=== PATIENT | male | born 1995 | race Caucasian/White ===

== ENCOUNTER → 2017-01-29 | Outpatient (CLI) | payer OTHER ==
[~2017-01-29] MED LIST: ADVIL200 MG PO; DDAVP0.2 MG PO; NORCO 5-325 TA1 EACH PO; TRIPLE ANTIB28.35 GM TOP; TYLENOL EXTRA500 MG PO; ZYRTEC10 MG PO
== END | disposition disaster alternative care site (69) ==
LOC: GAIR 23:36
DX: S49.90XA Unspecified injury of shoulder and upper arm, unspecified arm, initial encounter (principal); R41.82 Altered mental status, unspecified; V49.60XA Unspecified car occupant injured in collision with unspecified motor vehicles in traffic accident, initial encounter
CPT/HCPCS: A0422; A0431; A0436; J2250; J3010

== ENCOUNTER 2017-01-30 00:02 | Inpatient (IN) | payer OTHER ==
[~2017-01-30] VITALS: Ht 193 cm; Wt 130.5 kg
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
--- NOTE | ~2017-01-30 | OR ---
PATIENT'S NAME: NOAH SMITH [facility] AGE: 21 Y [address] ROOM: [place] [id number] LOCATION: GICU ADMIT DATE: 01/30/2017 OR/Procedure Report DISCHARGE DATE: FAMILY PHYSICIAN: Shakila Henning MD ATTENDING PHYSICIAN: Tae Mendoza SURGEON: Toñito Choi MD DISTRICT COURT JUDGE: ALEX Holley. An retail store assistant was necessary during the entire case. The retail store assistant helped with positioning the limb in space, soft tissue retraction, fracture reduction, as well as fracture fixation, wound closure, and wound VAC application. DATE OF PROCEDURE: 01/31/2017 PREOPERATIVE DIAGNOSES: 1. Open right coracoid fracture. 2. Right shoulder AC joint instability. 3. Large soft tissue wound over the right upper chest and shoulder measuring greater than 30 cm involving skin, subcutaneous tissue, fascia, muscle, and bone. POSTOPERATIVE DIAGNOSES: 1. Open right coracoid fracture. 2. Right shoulder AC joint instability. 3. Large soft tissue wound over the right upper chest and shoulder measuring greater than 30 cm involving skin, subcutaneous tissue, fascia, muscle, and bone. PROCEDURE: 1. Right shoulder large wound irrigation and debridement of skin, subcutaneous tissue, fat, fascia, nonviable muscle, and bone. 2. Open reduction and internal fixation of right coracoid fracture using a 4.5 mm Synthes cannulated screw. 3. AC joint stabilization. 4. Incisional wound VAC application measuring 24 cm in length. ANESTHESIA: General endotracheal anesthesia. DRAINS: Wound VAC x1. COMPLICATIONS: None. SPECIMENS: None. INDICATIONS: Noah Smith is a 21-year-old male. He initially presented to the emergency room approximately 36 hours prior. He was found to have an open right coracoid fracture with significant soft tissue wounds. He also had an PATIENT'S NAME: NOAH SMITH [facility] AGE: 21 Y [address] ROOM: [address] [address] LOCATION: [facility] ADMIT DATE: 01/30/2017 OR/Procedure Report DISCHARGE DATE: FAMILY PHYSICIAN: Shakila Henning MD ATTENDING PHYSICIAN: Tae Mendoza open right fifth distal phalanx fracture. He was taken back to the operating room and underwent irrigation and debridement of the open wound as well as fracture fixation of the right fifth digit. The wound VAC was placed. On further imaging, he did appear to have a diastasis across that AC joint. Ultimately, given that significant soft tissue envelope, I did not want to operate on the coracoid with that large soft tissue injury until I knew that the wound was stable. For that reason, I scheduled him for a subsequent I and D approximately 36 hours after the initial I and D. I talked to the family as well as the patient. Should the wound appeared clean and in fact, I would then plan on performing an open reduction and internal fixation of the coracoid. Should the wound still be contaminated or should there be evidence of nonviable muscle or purulence, I would then repeat the irrigation and debridement at a later time and plan on fixation at a later time. I talked about the risk of bleeding, infection, damage to surrounding structures, as well as the potential need for future surgery. I talked about the risk of nerve damage. We also talked about the risk that he probably had an element of a scapular thoracic dissociation based on that AC joint widening. I talked about the risk of nerve root injury. He did have spinal fractures which were being treated by an outside surgeon and he is in a brace per the . PROCEDURE IN DETAILS: Surgical marking pen was used to correctly identify the right shoulder as the surgical site. Consent was signed and dated. He was taken back to the operating suite, placed supine on the OR table. He underwent general endotracheal induction and intubation. Time-out was called by myself. During the time-out, the patient, the procedure to be performed, the dosing of the preoperative antibiotics and the postoperative plan were reviewed by everyone in the room. He was placed in a beach chair position. All bony prominences were well padded. The right upper extremity was then prepped and draped in a standard sterile fashion. Prior to doing this, the wound VAC was removed. The previously placed sutures were taken out of that right wound. The hand was well-padded and well protected in a stockinette. At this point, I opened up the wound. Some of that anterior deltoid that had previously been irrigated and debrided did not appear that healthiest. There was a small area about 2 cm x 1 cm that did not have great color nor contractility. For that reason, it was debrided and removed. Likewise, there was some fascia overlying this deltoid that required removing it. There were 2 areas of skin, 1 in the apex of the wound at the very top and then the other 1 in the axilla that had to be debrided based on a dusky appearance. I went ahead and removed those edges. The remainder of the wound was very clean. The remainder of the deltoid as well as the pec major muscle had good contractility , good color and good muscle consistency. I clearly irrigated the wound again with 9 L of normal saline via pulse lavage. Bulb irrigation was used medially as I was able to visualize that brachial plexus sitting medially. At that point, I exposed the fracture fragments at the base of the coracoid. There was a small amount of bony ends that I was able to remove. I PATIENT'S NAME: NOAH SMITH [facility] AGE: 21 Y [address] ROOM: [place] [address] LOCATION: [facility] ADMIT DATE: 01/30/2017 OR/Procedure Report DISCHARGE DATE: FAMILY PHYSICIAN: Shakila Henning MD ATTENDING PHYSICIAN: Tae Mendoza was then able to get an anatomic read. I held it in place with a point-to- point reduction clamp and then I shot two 0.035 K-wires across the fracture site to hold it in place. X-ray was then brought into confirm the placement. I then placed a single Synthes 4.5 mm cannulated partially threaded screw across the coracoid. It measured 50 mm in length. I was able to confirm on x- ray the placement of the screw into the base of the coracoid. The fracture did appear to be anatomically reduced and I had good compression with that partially threaded screw. That brought very nice tension across that conjoint tendon. I then thoroughly irrigated the wound again and achieved hemostasis. I went distally. I was able to localize a small amount of pec major tendon their on the humerus. I placed a wbxbzx-pv-eorkc stitch in that pec tendon and then I brought down the sternal aspect of that pec tendon to the tendon. The clavicular head of the pec major appeared to be intact. I was able to follow the short head of the biceps proximally and noted that conjoint tendon and the fixated coracoid. Medially, I was able to see that the pec minor attached appropriately to the coracoid as well. At this point, I exposed the AC joint. The coracoclavicular ligaments, both the conoid as well as the trapezoid had been disrupted and the clavicle was just free floating. I was able to mobilize the clavicle quite readily with a towel clip on the end of it. I was able to see the superior aspect of the capsule had been detached to the superior acromioclavicular ligaments that were on the clavicular end. At this point, however, I did not feel like straight suture fixation through the superior acromioclavicular ligaments would provide a great fixation. We knew from the x-rays both preoperatively as well as intraoperatively they did have diastasis. At this point, I thought I had 2 options; one will be to put plate and screw construct on the superior aspect of the AC joint to try to reduce the clavicle. The other option would be to perform a suture fixation in a ruvrnd-hz-aalll fashion. Given the open nature of the wound, I did not want to put any more hardware in place than that when all possible. For that reason, I drilled two 2 mm drill holes in the medial aspect of the acromion as well as two 2 mm drill holes in the distal aspect of the clavicle. I then ran a #5 FiberWire in a fogznu-dj-ezoth fashion and reduced the acromioclavicular joint. I then used a #2 FiberWire and repaired that superior capsule and periosteum of the acromion. I felt overall comfortable with that repair. X- ray confirmed that AC joint had been reduced. I then went ahead and irrigated the wound again with another liter of fluid. No evidence of any purulence was examined. I then closed the wound. I reapproximated the deltoid muscle that had been disrupted using 0 Vicryl. I then closed down the deltopectoral interval with an 0 Vicryl in a tyshvs-vm-fmajl fashion. I then closed the wound with a 2-0 Vicryl, followed by a 3-0 nylon in mattress fashion. An incisional wound VAC was placed after I had placed Xeroform on the wound and then I dressed the wound with the wound VAC in standard fashion. He was transferred to the recovery room. In recovery room, I was able to visualize flexion and extension of all 5 digits. He reported intact sensation in the recovery room as well. PATIENT'S NAME: NOAH SMITH [facility] AGE: 21 Y [address] [place]OM: [id number] [address] LOCATION: [facility] ADMIT DATE: 01/30/2017 OR/Procedure Report DISCHARGE DATE: FAMILY PHYSICIAN: Shakila Henning MD ATTENDING PHYSICIAN: Tae Mendoza TOÑITO MD AARON CABRAL/qiana /[id number] d: 02/01/17 0821 t: 02/03/17 2149, OPERATIVE SUMMARY
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
[2017-01-30 00:37] LABS: HEMATOCRIT 36.9 % (37.0-53.0); HEMOGLOBIN 12.2 g/dL (12.0-17.0); MCHC 33.1 gm/dL (32.0-36.5); MCV 87.6 fl (83.0-98.0); MPV 10.5 fl (9.4-12.4); PLATELET COUNT 299 K/uL (150-450); RBC 4.21 M/uL (4.00-6.00); RDW-CV 12.6 % (11.9-14.6)
[2017-01-30 00:40] LABS: WBC 22.7 K/uL (4.0-11.0)
[2017-01-30 00:43] LABS: PCO2 43 mmHg (35-45); PO2 200 mmHg (80-90)
[2017-01-30 00:44] LABS: POTASSIUM 3.3 mEq/L (3.7-5.1); SODIUM 142 mEq/L (135-145)
[2017-01-30 01:00] LABS: PROTIME 10.8 SECONDS (9.6-11.1); PTT 20 SECONDS (25-32)
[2017-01-30 01:06] LABS: ANION GAP 18.3 (10.0-19.0); CHLORIDE 108 mMol/L (96-110)
[2017-01-30 01:07] LABS: BLOOD UREA NITROGEN 12 mg/dL (6-24); ESTIMATED GFR (MDRD EQUATION) > 60
[2017-01-30 02:04] LABS: ABSOLUTE NEUTROPHIL CT (ANC) 16.6 K/uL (1.4-9.0); BANDED NEUTROPHILS % 9 %; LYMPHOCYTE # 3.6 K/uL (0.8-4.0); LYMPHOCYTE % 16 %; MONOCYTE # 2.5 K/uL (0.0-1.0); SEGMENTED NEUTROPHIL # 14.5 K/uL (1.4-9.0); SEGMENTED NEUTROPHIL % 64 %
[2017-01-30] MEDS ORDERED: TRIPLE ANTIB28.35 GM TOP (09:17)
[2017-01-30] MEDS ORDERED: DDAVP0.2 MG PO (09:17)
[2017-01-30] MEDS ORDERED: ZYRTEC10 MG PO (09:18)
[2017-01-30] MEDS ORDERED: ADVIL200 MG PO (09:18)
[2017-01-30] MEDS ORDERED: TYLENOL EXTRA500 MG PO (09:18)
[2017-01-30 10:01] LABS: BASOPHIL % 0.1 %; HEMATOCRIT 30.5 % (37.0-53.0); IMMATURE GRANULOCYTE # 0.4 K/uL (0.0-0.3); LYMPHOCYTE % 6.6 %; MCH 28.5 pg (27.0-34.0); MCHC 32.8 gm/dL (32.0-36.5); MCV 86.9 fl (83.0-98.0); MONOCYTE # 1.1 K/uL (0.0-1.0); MONOCYTE % 7.3 %; MPV 10.3 fl (9.4-12.4); NRBC % 0 /100WBC (0-0.00); RBC 3.51 M/uL (4.00-6.00); RDW-CV 12.9 % (11.9-14.6); WBC 14.4 K/uL (4.0-11.0)
[2017-01-30 10:03] LABS: PLATELET COUNT 217 K/uL (150-450)
[2017-01-30 10:16] LABS: BLOOD UREA NITROGEN 9 mg/dL (6-24); CHLORIDE 108 mMol/L (96-110); CO2 23 mMol/L (22-32); ESTIMATED GFR (MDRD EQUATION) > 60; SODIUM 144 mMol/L (135-145)
[2017-01-30 10:18] LABS: ANION GAP 17.6 (10.0-19.0); CALCIUM 7.4 mg/dL (8.5-10.5); POTASSIUM 4.6 mMol/L (3.7-5.1)
[2017-01-31 05:28] LABS: BASOPHIL % 0.4 %; EOSINOPHIL % 0.3 %; HEMOGLOBIN 8.3 g/dL (12.0-17.0); IMMATURE GRANULOCYTE # 0.3 K/uL (0.0-0.3); IMMATURE GRANULOCYTE % 2.4 %; LYMPHOCYTE # 1.8 K/uL (0.8-4.0); MCH 28.3 pg (27.0-34.0); MCHC 31.9 gm/dL (32.0-36.5); MCV 88.7 fl (83.0-98.0); MONOCYTE % 9.7 %; MPV 10.1 fl (9.4-12.4); NEUTROPHIL # (ANC) 7.4 K/uL (1.4-9.0); NEUTROPHIL % 70.2 %; NRBC % 0 /100WBC (0-0.00); RBC 2.93 M/uL (4.00-6.00); RDW-CV 12.7 % (11.9-14.6); WBC 10.5 K/uL (4.0-11.0)
[2017-01-31 05:39] LABS: PLATELET COUNT 152 K/uL (150-450)
[2017-01-31 05:41] LABS: ANION GAP 12.2 (10.0-19.0); BLOOD UREA NITROGEN 7 mg/dL (6-24); CALCIUM 7.9 mg/dL (8.5-10.5); CHLORIDE 106 mMol/L (96-110); CO2 25 mMol/L (22-32); CREATININE 0.6 mg/dL (0.6-1.3); ESTIMATED GFR (MDRD EQUATION) > 60; POTASSIUM 4.2 mMol/L (3.7-5.1); SODIUM 139 mMol/L (135-145)
[2017-02-02 05:47] LABS: ALBUMIN 2.3 gm/dL (3.5-5.0); ANION GAP 11.4 (10.0-19.0); BLOOD UREA NITROGEN 6 mg/dL (6-24); CALCIUM 7.7 mg/dL (8.5-10.5); CHLORIDE 105 mMol/L (96-110); CO2 28 mMol/L (22-32); CREATININE 0.5 mg/dL (0.6-1.3); ESTIMATED GFR (MDRD EQUATION) > 60; POTASSIUM 3.4 mMol/L (3.7-5.1); SODIUM 141 mMol/L (135-145)
[2017-02-02 05:53] LABS: MCV 91.6 fl (83.0-98.0); MPV 9.8 fl (9.4-12.4); PLATELET COUNT 163 K/uL (150-450); RBC 2.25 M/uL (4.00-6.00); RDW-CV 12.8 % (11.9-14.6); WBC 11.4 K/uL (4.0-11.0)
[2017-02-02 05:57] LABS: HEMATOCRIT 20.6 % (37.0-53.0); HEMOGLOBIN 6.5 g/dL (12.0-17.0); MCH 28.9 pg (27.0-34.0); MCHC 31.6 gm/dL (32.0-36.5)
[2017-02-02 06:30] LABS: ABSOLUTE NEUTROPHIL CT (ANC) 7.5 K/uL (1.4-9.0); BANDED NEUTROPHIL # 1.3 K/uL (0.0-0.1); BANDED NEUTROPHILS % 11 %; LYMPHOCYTE # 2.3 K/uL (0.8-4.0); LYMPHOCYTE % 20 %; SEGMENTED NEUTROPHIL # 6.3 K/uL (1.4-9.0); SEGMENTED NEUTROPHIL % 55 %
[2017-02-03 04:24] LABS: HEMATOCRIT 18.5 % (37.0-53.0); MCH 28.4 pg (27.0-34.0); MCHC 31.4 gm/dL (32.0-36.5); MCV 90.7 fl (83.0-98.0); MPV 10.1 fl (9.4-12.4); PLATELET COUNT 169 K/uL (150-450); RBC 2.04 M/uL (4.00-6.00); RDW-CV 12.9 % (11.9-14.6); WBC 11.5 K/uL (4.0-11.0)
[2017-02-03 04:33] LABS: HEMOGLOBIN 5.8 g/dL (12.0-17.0)
[2017-02-03 05:13] LABS: ABSOLUTE NEUTROPHIL CT (ANC) 6.4 K/uL (1.4-9.0); BANDED NEUTROPHIL # 1.8 K/uL (0.0-0.1); BANDED NEUTROPHILS % 16 %; LYMPHOCYTE # 2.4 K/uL (0.8-4.0); LYMPHOCYTE % 21 %; MONOCYTE # 0.3 K/uL (0.0-1.0); SEGMENTED NEUTROPHIL # 4.6 K/uL (1.4-9.0); SEGMENTED NEUTROPHIL % 40 %
[2017-02-03 11:19] LABS: HEMATOCRIT 19.6 % (37.0-53.0)
[2017-02-03 11:20] LABS: HEMOGLOBIN 6.1 g/dL (12.0-17.0)
[2017-02-04 07:04] LABS: MCHC 32.1 gm/dL (32.0-36.5); MCV 89.9 fl (83.0-98.0); MPV 9.7 fl (9.4-12.4); PLATELET COUNT 172 K/uL (150-450); RDW-CV 14.3 % (11.9-14.6); WBC 12.4 K/uL (4.0-11.0)
[2017-02-04 07:05] LABS: HEMATOCRIT 24.9 % (37.0-53.0); MCH 28.9 pg (27.0-34.0); RBC 2.77 M/uL (4.00-6.00)
[2017-02-04 08:12] LABS: ABSOLUTE NEUTROPHIL CT (ANC) 8.2 K/uL (1.4-9.0); BANDED NEUTROPHIL # 1.9 K/uL (0.0-0.1); BANDED NEUTROPHILS % 15 %; MONOCYTE # 0.6 K/uL (0.0-1.0); SEGMENTED NEUTROPHIL # 6.3 K/uL (1.4-9.0); SEGMENTED NEUTROPHIL % 51 %
[2017-02-04 08:13] LABS: LYMPHOCYTE # 1.9 K/uL (0.8-4.0); LYMPHOCYTE % 15 %
[2017-02-05 06:47] LABS: HEMATOCRIT 26.5 % (37.0-53.0); HEMOGLOBIN 8.3 g/dL (12.0-17.0); MCH 28.2 pg (27.0-34.0); MCHC 31.3 gm/dL (32.0-36.5); MCV 90.1 fl (83.0-98.0); MPV 9.8 fl (9.4-12.4); PLATELET COUNT 197 K/uL (150-450); RBC 2.94 M/uL (4.00-6.00); RDW-CV 14.6 % (11.9-14.6); WBC 13.3 K/uL (4.0-11.0)
[2017-02-05 06:56] LABS: ANION GAP 10.8 (10.0-19.0); BLOOD UREA NITROGEN 9 mg/dL (6-24); CALCIUM 8.3 mg/dL (8.5-10.5); CHLORIDE 108 mMol/L (96-110); CO2 29 mMol/L (22-32); CREATININE 0.6 mg/dL (0.6-1.3); ESTIMATED GFR (MDRD EQUATION) > 60; POTASSIUM 3.8 mMol/L (3.7-5.1); SODIUM 144 mMol/L (135-145)
[2017-02-05 08:28] LABS: ABSOLUTE NEUTROPHIL CT (ANC) 7.1 K/uL (1.4-9.0); BANDED NEUTROPHIL # 1.3 K/uL (0.0-0.1); BANDED NEUTROPHILS % 10 %; LYMPHOCYTE # 3.2 K/uL (0.8-4.0); LYMPHOCYTE % 24 %; MONOCYTE # 0.7 K/uL (0.0-1.0); SEGMENTED NEUTROPHIL # 5.7 K/uL (1.4-9.0); SEGMENTED NEUTROPHIL % 43 %
[2017-02-06 04:52] LABS: ALBUMIN 2.7 gm/dL (3.5-5.0); ALK PHOS 73 IU/L (33-138); ALT 117 IU/L (12-78); ANION GAP 11.4 (10.0-19.0); AST 116 IU/L (10-40); BLOOD UREA NITROGEN 10 mg/dL (6-24); CALCIUM 7.8 mg/dL (8.5-10.5); CHLORIDE 104 mMol/L (96-110); CO2 29 mMol/L (22-32); CREATININE 0.6 mg/dL (0.6-1.3); ESTIMATED GFR (MDRD EQUATION) > 60; POTASSIUM 4.4 mMol/L (3.7-5.1); SODIUM 140 mMol/L (135-145); TOTAL BILIRUBIN 0.5 mg/dL (0.0-1.5); TOTAL PROTEIN 5.8 g/dL (6.0-8.4)
[2017-02-06 04:57] LABS: HEMATOCRIT 28.2 % (37.0-53.0); HEMOGLOBIN 9.3 g/dL (12.0-17.0); MCH 29.5 pg (27.0-34.0); MCV 89.5 fl (83.0-98.0); MPV 10.1 fl (9.4-12.4); PLATELET COUNT 198 K/uL (150-450); RBC 3.15 M/uL (4.00-6.00); RDW-CV 14.9 % (11.9-14.6); WBC 14.5 K/uL (4.0-11.0)
[2017-02-06 05:35] LABS: ABSOLUTE NEUTROPHIL CT (ANC) 8.4 K/uL (1.4-9.0); BANDED NEUTROPHIL # 1.3 K/uL (0.0-0.1); BANDED NEUTROPHILS % 9 %; LYMPHOCYTE # 5.2 K/uL (0.8-4.0); LYMPHOCYTE % 36 %; MONOCYTE # 0.9 K/uL (0.0-1.0); SEGMENTED NEUTROPHIL # 7.1 K/uL (1.4-9.0); SEGMENTED NEUTROPHIL % 49 %
[2017-02-08 04:39] LABS: HEMATOCRIT 30.4 % (37.0-53.0); HEMOGLOBIN 9.5 g/dL (12.0-17.0); MCH 28.9 pg (27.0-34.0); MCHC 31.3 gm/dL (32.0-36.5); MCV 92.4 fl (83.0-98.0); MPV 9.6 fl (9.4-12.4); RBC 3.29 M/uL (4.00-6.00); WBC 15.5 K/uL (4.0-11.0)
[2017-02-08 04:44] LABS: PLATELET COUNT 239 K/uL (150-450)
[2017-02-08 06:25] LABS: BANDED NEUTROPHIL # 1.4 K/uL (0.0-0.1); BANDED NEUTROPHILS % 9 %; LYMPHOCYTE # 1.4 K/uL (0.8-4.0); LYMPHOCYTE % 9 %; SEGMENTED NEUTROPHIL # 9.6 K/uL (1.4-9.0); SEGMENTED NEUTROPHIL % 62 %
[2017-02-10 04:17] LABS: HEMATOCRIT 26.7 % (37.0-53.0); HEMOGLOBIN 8.4 g/dL (12.0-17.0); MCH 28.5 pg (27.0-34.0); MCHC 31.5 gm/dL (32.0-36.5); MCV 90.5 fl (83.0-98.0); MPV 9.6 fl (9.4-12.4); RBC 2.95 M/uL (4.00-6.00); WBC 12.5 K/uL (4.0-11.0)
[2017-02-10 04:20] LABS: PLATELET COUNT 349 K/uL (150-450)
[2017-02-10 05:08] LABS: ABSOLUTE NEUTROPHIL CT (ANC) 8.8 K/uL (1.4-9.0); BANDED NEUTROPHIL # 1.6 K/uL (0.0-0.1); BANDED NEUTROPHILS % 13 %; LYMPHOCYTE # 2.5 K/uL (0.8-4.0); LYMPHOCYTE % 20 %; MONOCYTE # 0.4 K/uL (0.0-1.0); SEGMENTED NEUTROPHIL # 7.1 K/uL (1.4-9.0); SEGMENTED NEUTROPHIL % 57 %
[2017-02-10] MEDS ORDERED: NORCO 5-325 TA1 EACH PO (10:43)
== END 2017-02-10 12:57 | disposition disaster alternative care site (69) | DRG 459 ==
LOC: GACC 00:02 → GNTU 01:15 → GICU 01:15 → GNTU 02-01 23:01
PROVIDERS: Emergency Medicine; Neurological Surgery; Physician Assistant; ADMIT Surgery
PROC: 0PST04Z Reposition Right Finger Phalanx with Internal Fixation Device, Open Approach (ICD-10-PCS; principal; 2017-01-30)
PROC: 0JQ13ZZ Repair Face Subcutaneous Tissue and Fascia, Percutaneous Approach (ICD-10-PCS; principal; 2017-01-30)
PROC: 0JD13ZZ Extraction of Face Subcutaneous Tissue and Fascia, Percutaneous Approach (ICD-10-PCS; principal; 2017-01-30)
PROC: 0JDD3ZZ Extraction of Right Upper Arm Subcutaneous Tissue and Fascia, Percutaneous Approach (ICD-10-PCS; principal; 2017-01-30)
PROC: 2W18X6Z Compression of Right Upper Extremity using Pressure Dressing (ICD-10-PCS; principal; 2017-01-30)
PROC: 0PS504Z Reposition Right Scapula with Internal Fixation Device, Open Approach (ICD-10-PCS; 2017-02-01)
PROC: 0RG70Z1 (ICD-10-PCS; 2017-02-05)
DX: S22.001A Stable burst fracture of unspecified thoracic vertebra, initial encounter for closed fracture (principal); S42.301B Unspecified fracture of shaft of humerus, right arm, initial encounter for open fracture; S12.600A Unspecified displaced fracture of seventh cervical vertebra, initial encounter for closed fracture; D62 Acute posthemorrhagic anemia; J93.9 Pneumothorax, unspecified; S32.010A Wedge compression fracture of first lumbar vertebra, initial encounter for closed fracture; S14.3XXA Injury of brachial plexus, initial encounter; S32.020A Wedge compression fracture of second lumbar vertebra, initial encounter for closed fracture; S42.121 Displaced fracture of acromial process, right shoulder; S62.639B Displaced fracture of distal phalanx of unspecified finger, initial encounter for open fracture; S01.81XA Laceration without foreign body of other part of head, initial encounter; S22.049A Unspecified fracture of fourth thoracic vertebra, initial encounter for closed fracture; S22.059A Unspecified fracture of T5-T6 vertebra, initial encounter for closed fracture; S41.011A Laceration without foreign body of right shoulder, initial encounter; V89.2XXA Person injured in unspecified motor-vehicle accident, traffic, initial encounter
CPT/HCPCS: C1713; G0390; G0480; J0131; J0171; J0690; J1170; J1580; J1644; J1650; J2001; J2250; J3010; J3360; J3370; J7030; J7040; J7050; J7060; P9016; Q9967

== ENCOUNTER 2017-02-13 16:55 | Emergency (ER) | payer OTHER ==
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
--- NOTE | ~2017-02-13 | ER ---
PATIENT'S NAME: DANTE SMITH [facility] AGE: 21 Y [address] ROOM: [place] [address] LOCATION: [facility] ADMIT DATE: 02/13/2017 ER/Outpatient Report DISCHARGE DATE: 02/13/2017 FAMILY PHYSICIAN: Physician, Unknown ATTENDING PHYSICIAN: Jabari Grove HISTORY: This patient is a 21-year-old male who I believe recently underwent operative procedure on a thoracic fracture. Also had a neck fracture and is wearing a cervical collar. He is having increased pain in left shoulder over the past couple days. No other complaints. Dr. Flores is here, evaluating the CT scan of the patient's C-spine and thoracic spine. Dr. Flores will proceed on results of the CT scans as far as any further treatment or observation. I did not find anything that I needed to further assess or treat. MD ROBERT LAMB/modl /[id number] d: 02/14/17 2213 t: 02/15/17 1824, OUTPATIENT REPORT
== END 2017-02-13 18:25 | disposition disaster alternative care site (69) ==
LOC: GMED 16:55
DX: M25.512 Pain in left shoulder (principal)